=== PATIENT | male | born 2000 | race Caucasian/White ===

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

== ENCOUNTER 2022-10-15 22:54 | Outpatient (CLI) | payer BC, MEDICAID | END 2022-10-15 22:55 | disposition critical access hospital (66) | LOC: EMS 22:54 | DX: S83.014A Lateral dislocation of right patella, initial encounter (principal); W18.39XA Other fall on same level, initial encounter; Y93.K9 Activity, other involving animal care; Y92.007 Garden or yard of unspecified non-institutional (private) residence as the place of occurrence of the external cause | CPT/HCPCS: A0425; A0427 ==

== ENCOUNTER 2022-10-15 23:01 | Emergency (ER) | payer BC, MEDICAID ==
[2022-10-15] MEDS ORDERED: MIDAZOLAM 10 MG/5 ML UDC PO STA (23:14)
[2022-10-15] MEDS ORDERED: MORPHINE 2 MG/ML CARPUJECT IVP STA (23:36)
[2022-10-15 23:50] VITALS: BP 127/84
--- NOTE | 2022-10-15 23:53 | ED Physician Documentation ---
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 EMS was called and they administered fentanyl in route with minimal improvement in pain. Patient has severe pain to the right lateral knee that is nonradiating, worse with any movement and associated with deformity of the patella. Review of Systems Musculoskeletal: reports: Extremity pain, Joint pain PD PAST MEDICAL HISTORY - Past Medical History Cardiovascular: Other Endocrine/Autoimmune: None GI: GERD, Other Psych: Depression, Anxiety, Schizophrenia, Other - Past Surgical History Past Surgical History: No - Present Medications Home Medications: Ambulatory Orders Medication Instructions Recorded Confirmed ondansetron HCL [Zofran] 4 mg PO Q6H PRN #10 tablet 08/09/17 08/15/18 Omeprazole 20 mg PO DAILY 08/15/18 08/15/18 - Allergies Allergies/Adverse Reactions: Allergies Allergy/AdvReac Type Severity Reaction Status Date / Time No Known Drug Allergies Allergy Verified 10/15/22 23:11 - Social History Does the pt smoke?: No Smoking Status: Never smoker Does the pt drink ETOH?: No Does the pt have substance abuse?: No - Immunizations Immunizations are current?: Yes - POLST Patient has POLST: No PD ED PE NORMAL - Vitals Vital signs reviewed: Yes - General General: Alert and oriented X 3, No acute distress, Well developed/nourished - HEENT HEENT: Atraumatic, PERRL, EOMI - Extremities Extremities: Other (Right knee with patella displaced laterally. Significant pain with any movement or to touch of the right knee. 2+ DP and PT pulses right lower extremity. Normal sensation and movement.) Results - Vitals Vitals: Vital Signs - 24 hr 10/15/22 10/15/22 10/15/22 23:07 23:11 23:49 Temperature 36.8 C Heart Rate 79 85 107 H Respiratory 13 16 Rate Blood Pressure 119/89 H 119/89 H 127/84 H O2 Saturation 97 99 100 10/15/22 23:51 Temperature Heart Rate 96 Respiratory 13 Rate Blood Pressure 127/84 H O2 Saturation 99 Oxygen O2 Source Room air Procedures - Reduction Body part reduced: Right, Knee Fracture or dislocation: Dislocation Anesthesia: Morphine Reduction aftercare: NV intact, Xray confirms reduction, Alignment improved, Splint applied, Patient tolerated well PD Medical Decision Making - ED course ED course: 22-year-old man presents with right lateral knee dislocation, reducing spontaneously with knee straightening and gentle touch. Xray confirms relocation. Symptom care discussed. crutches and knee brace applied. plan to f/u pcp and ortho. return precautions given. Departure - Departure Disposition: 01 Home, Self Care Clinical Impression: Patellar dislocation Condition: Good Instructions: ED Dislocation Patella Follow-Up: Young Boyle MD [Physician No Access] - Vania Cardenas ARNP [Provider Admit Priv/Credential] - Comments: You were seen in the emergency department for a right lateral knee dislocation. You should limit walking, standing, impact, and repetitive bending, particularly if these activities cause pain. Apply ice and elevate the leg for 10 to 15 minutes four times daily. Take ibuprofen 400 to 600mg every 6 hours as needed for pain. Use a patellar restraining brace with fabric stays during the day. You can get one from [employer] or equivalent medical supply store. Follow up with a primary care provider and orthopedics (referrals enclosed). Return to the emergency department for new or worsening symptoms or other concerns.
--- NOTE | 2022-10-16 00:21 | XRAY Report ---
PROCEDURE: Knee 2 View RT INDICATIONS: knee dislocatn TECHNIQUE: 2 views of the right knee(s) were acquired. COMPARISON: None. FINDINGS: Bones: No displaced fracture. Knee alignment is maintained at this time. Soft tissues: Joint spaces not well seen on lateral view. IMPRESSION: Knee alignment is maintained at this time. Please consider MRI to further evaluate for soft tissue i njuries in the setting of reported knee dislocation. Reviewed by: Eulogio Gutiérrez MD on 10/16/2022 12:19 AM PDT Approved by: Eulogio Gutiérrez MD on 10/16/2022 12:19 AM PDT Station ID: [id number]
== END 2022-10-16 00:40 | disposition home or self-care (01) ==
LOC: EDUNIT# → ED 23:01
DX: S83.014A Lateral dislocation of right patella, initial encounter (principal); W18.40XA Slipping, tripping and stumbling without falling, unspecified, initial encounter; Y93.K1 Activity, walking an animal; Y92.096 Garden or yard of other non-institutional residence as the place of occurrence of the external cause
CPT/HCPCS: 27562; 73560; 96374; 99283; A9270

== ENCOUNTER 2022-10-23 08:00 | Outpatient (CLI) | payer BC, MEDICAID ==
--- NOTE | 2022-10-23 14:46 | XRAY Report ---
PROCEDURE: Knee 4 View RT INDICATIONS: RIGHT KNEE PAIN TECHNIQUE: 4 views of the right knee(s) were acquired. COMPARISON: 10/15/2022 FINDINGS: Bones: No displaced fracture or dislocation. Partially seen suspected fibrous cortical defect. On dueñas nrise view, there may be small bone fragments just medial to the patella. Soft tissues: Trace joint effusion. IMPRESSION: Possible small bone fragments medial to the patella on sunrise view, could represent avulsion/impacti on fractures. In the setting of reported prior dislocation, consider MRI to further evaluate. Suspect ed fibrous cortical defect in the partially seen left medial tibial metaphysis. Correlate with any sy mptoms and consider follow-up to ensure this resolves. Reviewed by: Eulogio Gutiérrez MD on 10/23/2022 2:45 PM PDT Approved by: Eulogio Gutiérrez MD on 10/23/2022 2:45 PM PDT Station ID: [id number]
== END 2022-10-23 23:59 | disposition home or self-care (01) ==
LOC: DI.WOS 08:00
PROVIDERS: ATTEND Orthopaedic Surgery
DX: M25.561 Pain in right knee (principal)